=== PATIENT | male | born 1990 | race Hispanic/Latino ===

== ENCOUNTER 2023-10-08 11:03 | Inpatient (IN) | payer SELFPAY ==
[2023-10-08] MEDS ORDERED: CEFAZOLIN 2 GM VIAL ONE (11:06)
[2023-10-08] MEDS ORDERED: Sodium Chloride 0.9% 100 ML ONE (11:06)
[2023-10-08] MEDS ORDERED: Boostrix 0.5 ML (Tdap) VIAL (>/=7 yrs of age) ONE (11:07)
[2023-10-08 11:21] LABS: #Basophils 0.1 thou/uL (0.0-0.2); #Eosinphils 0.5 thou/uL (0.0-0.7); #Monocytes 0.4 thou/uL (0.11-0.59); #Neutrophils 4.5 thou/uL (1.40-6.50); %Basophils 0.8 % (0.0-1.0); %Lymphocytes 35.3 % (21.0-51.0); %Monocytes 5.1 % (0.0-10.0); %Neutrophils 52.3 % (42.0-75.0); Hematocrit 39.5 % (42.0-52.0); Hemoglobin 13.8 g/dL (14.0-18.0); Mean Corpuscular HGB CONC 34.9 g/dL (32.0-36.0); Mean Corpuscular Hemoglobin 31.2 pg (27.0-31.0); Mean Corpuscular Volume 89.4 fl (78.0-98.0); Mean Platelet Volume 9.6 fL (7.4-10.4); Platelet Count 285 10x3/uL (130-400); RBC Distribution Width 12.6 % (11.5-14.5); Red Blood Cell (RBC) Count 4.42 mill/uL (4.70-6.10); White Blood Cell (WBC) Count 8.6 10x3/uL (4.8-10.8)
[2023-10-08] MEDS ORDERED: Ondansetron PF 4 MG/2 ML Vial ONE ×2 (11:29→13:00)
[2023-10-08] MEDS ORDERED: Morphine 4 MG/ML VIAL ONE (11:29)
[2023-10-08 11:38] LABS: PTT 25.6 sec (22.9-36.1); Prothrombin Time 12.8 sec (12.0-14.7)
[2023-10-08] MEDS ORDERED: traMADol HCl 50 MG TAB PO PRN (11:41)
[2023-10-08 11:54] LABS: ALT (SGPT) 17 U/L (8-55); AST (SGOT) 19 U/L (5-34); Albumin 4.3 g/dL (3.5-5.0); Alkaline Phosphatase 96 U/L (40-110); Anion Gap 16 mmol/L (10-20); BUN (Urea Nitrogen) 23 mg/dL (8.9-20.6); Bilirubin, Total 0.5 mg/dL (0.2-1.2); Calc. Creatinine Clearance 0 mL/min (70-130); Calcium 8.8 mg/dL (7.8-10.44); Carbon Dioxide 20 mmol/L (22-29); Chloride 107 mmol/L (98-107); Estimated GFR 93; Globulin 2.9 g/dL (2.4-3.5); Glucose 112 mg/dL (70-105); Potassium 3.7 mmol/L (3.5-5.1); Protein, Total 7.2 g/dL (6.0-8.3); Sodium 139 mmol/L (136-145)
[2023-10-08] MEDS ORDERED: EPINEPHrine 1 MG/ML VIAL ONE (12:54)
[2023-10-08] MEDS ORDERED: Lidocaine 2% PF 5 ML VIAL ONE (12:54)
[2023-10-08] MEDS ORDERED: Bupivacaine PF 0.5% 30 ML VIAL ONE (12:54)
[2023-10-08] MEDS ORDERED: PHENYLEPHRINE-NS 100 MCG/ML 10 ML SYRINGE ONE (13:00)
[2023-10-08] MEDS ORDERED: SUCCINYLCHOLINE/SOD CL,ISO/PF 200 MG/10 ML SYRINGE FS ONE (13:00)
[2023-10-08] MEDS ORDERED: Dexamethasone 20 MG/5 ML VIAL ONE ×2 (13:00→15:40)
[2023-10-08] MEDS ORDERED: PROPOFOL 200 MG/20 ML VIAL ONE (13:00)
[2023-10-08] MEDS ORDERED: Lidocaine 1% PF 5 ML VIAL ONE (13:00)
[2023-10-08] MEDS ORDERED: fentaNYL 50 mcg/mL 1 mL Vial ONE ×3 (13:02→16:29)
[2023-10-08] MEDS ORDERED: Bacitracin Zinc Ointment 30 gm TUBE ONE (13:49)
[2023-10-08] MEDS ORDERED: Ondansetron ODT 4 MG TAB PO PRN (14:04)
[2023-10-08] MEDS ORDERED: Ipratropium/Albuterol 3 ML NEB NEB PRN (14:04)
[2023-10-08] MEDS ORDERED: CEFAZOLIN 1 GM VIAL ONE (15:33)
[2023-10-08] MEDS ORDERED: Promethazine HCl 25 MG/ML VIAL IM PRN (16:17)
[2023-10-08] MEDS ORDERED: HYDROmorphone 2 MG/ML VIAL SLOW IVP PRN (16:17)
[2023-10-08] MEDS ORDERED: Ondansetron HCl/PF 4 MG/2 ML Vial IVP PRN (16:17)
[2023-10-08] MEDS ORDERED: Morphine Sulfate 2 MG/ML SYRINGE SLOW IVP PRN (16:17)
[2023-10-08] MEDS ORDERED: Meperidine HCl/PF 25 MG/ML VIAL SLOW IVP PRN (16:17)
[2023-10-08 18:12] VITALS: BMI 28.1
[2023-10-08] MEDS: Morphine 2 MG/ML VIAL SLOW IVP PRN (18:18)
[2023-10-08] MEDS: traMADol HCl 50 MG TAB PO SCH (18:19)
[2023-10-08] MEDS: Sodium Chloride 0.9% 1,000 ML IV SCH (19:57)
[2023-10-08] MEDS: Piperacillin/Tazobactam 3.375 GM in Sodium Chloride 0.9% 100 ML IVPB SCH ×2 (19:58→20:13)
[2023-10-08] MEDS: Acetaminophen 325 MG TAB PO SCH (19:58)
[2023-10-08] MEDS: Chlorhexidine Gluconate 15 ML UDCUP SSP SCH (20:13)
[2023-10-08] MEDS: Famotidine 20 MG TAB PO SCH (20:13)
[2023-10-09] MEDS: Piperacillin/Tazobactam 3.375 GM in Sodium Chloride 0.9% 100 ML IVPB SCH (00:05)
[2023-10-09 05:07] VITALS: TEMP 97.9
[2023-10-09 12:57] VITALS: BP 124/76
[2023-10-09] MEDS ORDERED: Triple Antibiotic Oint 1 GM Packet TOP SCH (14:45)
== END 2023-10-09 15:14 | disposition home or self-care (01) | DRG 144 ==
LOC: ERS 11:03 → EDBD 11:03 → BBPSJX 11:44 → SJJU 14:04
PROVIDERS: ADMIT Specialist; ATTEND Specialist
PROC: 0JB10ZZ Excision of Face Subcutaneous Tissue and Fascia, Open Approach (ICD-10-PCS; principal; 2023-10-08)
PROC: 09QK0ZZ Repair Nasal Mucosa and Soft Tissue, Open Approach (ICD-10-PCS; 2023-10-08)
PROC: 0JQ60ZZ Repair Chest Subcutaneous Tissue and Fascia, Open Approach (ICD-10-PCS; 2023-10-08)
PROC: 08QRXZZ Repair Left Lower Eyelid, External Approach (ICD-10-PCS; 2023-10-08)
DX: S01.511A Laceration without foreign body of lip, initial encounter (principal); S02.32XA Fracture of orbital floor, left side, initial encounter for closed fracture; S02.40DA Maxillary fracture, left side, initial encounter for closed fracture; S21.112A Laceration without foreign body of left front wall of thorax without penetration into thoracic cavity, initial encounter; S01.21XA Laceration without foreign body of nose, initial encounter; W31.2XXA Contact with powered woodworking and forming machines, initial encounter
CPT/HCPCS: 36415; 70450; 70486; 71045; 71260; 80053; 85025; 85610; 85730; 86850; 86900; 86901; 90471; 90715; 96365; 96375; G0390; J0171; J0665; J0690; J1100; J2001; J2270; J2272; J2405; J2543; J2704; J3010; J3490; J7050